=== PATIENT | female | born 1955 | race African-American/Black ===

== ENCOUNTER 2018-07-06 08:36 | Inpatient (IN) ==
[2018-07-06] MEDS ORDERED: hydrALAZINE 20 MG/1 ML VIAL IV STA ×3 (08:56→10:58)
[2018-07-06 09:01] LABS: Basophils % 0.6 % (0.0-0.8); Eosinophils # 0.1 10*3/uL (0.0-0.87); Eosinophils % 2.2 % (0.00-10.9); Hematocrit 43.5 VOL% (35.7-47.0); Hemoglobin 14.6 GM/DL (12.0-16.0); Immature Granulocytes % 0.2 %; Immature Granulocytes Absolute 0.01 #; Lymphocytes # 2.6 10*3/uL (1.4-4.0); Lymphocytes % 40.5 % (21.3-54.2); Mean Corpuscular HGB Conc 33.6 GM/DL (32-36); Mean Corpuscular Hemoglobin 28 PG (27-34); Mean Platelet Volume 10.5 FL (9.6-12.0); Monocytes # 0.7 10*3/uL (0.11-0.8); Monocytes % 10.6 % (1.7-12.7); Neutrophils # 2.9 10*3/uL (1.4-7.4); Neutrophils % 45.9 % (38.7-73.9); Platelet Count 276 T/CUMM (130-400); Red Blood Count 5.24 MC/CUMM (3.8-5.5); White Blood Count 6.4 T/CUMM (4-12)
[2018-07-06 09:30] LABS: Bilirubin,Total 0.6 MG/DL (0.2-1.0); Calcium 9.4 MG/DL (8.5-10.1); Osmolality,Calculated 279.5 MOS/KG (273-304); Potassium 3.8 MMOL/L (3.5-5.1); Total Protein 8.6 G/DL (6.4-8.3)
[2018-07-06 09:38] LABS: Apearance,Urine CLEAR (Clear); Bilirubin,Urine Negative (Negative); Blood, Urine Negative (Negative); Glucose,Urine (UA) Negative (Negative); Ketones,Urine 20 mg/dL (Negative); Mucus,Urine Occasional /LPF (Occasional); Nitrite,Urine Negative (Negative); Protein,Urine 100 MG/DL; RBC,Urine <1 /HPF (0-4); Squamous Epithelial Cell,Urine Occasional /HPF (0-10); Urine Color Yellow (Yellow); Urine Urobilinogen < 2.0 EU/DL (0.2-1.0); WBC,Urine 1 /HPF (0-6)
[2018-07-06 09:59] LABS: Barbiturates Screen,Urine Negative (Negative); Benzodiazepines Screen,Urine Negative (Negative); Cannabinoid Screen,Urine Negative (Negative); Opiate Screen,Urine Negative (Negative); Phencyclidine Screen,Urine Negative (Negative)
[2018-07-06] MEDS ORDERED: ACETAMINOPHEN 325 MG TABLET PO PRN (10:47)
[2018-07-06] MEDS ORDERED: ONDANSETRON 4 MG/2 ML VIAL IV PRN (10:47)
[2018-07-06] MEDS: ASPIRIN EC 325 MG TABLET PO SCH (13:56)
[2018-07-06] MEDS: hydrALAZINE 20 MG/1 ML VIAL IV PRN (21:05)
[2018-07-07 06:36] LABS: Basophils # 0.1 10*3/uL (0.0-0.2); Basophils % 0.7 % (0.0-0.8); Eosinophils # 0.1 10*3/uL (0.0-0.87); Eosinophils % 1.3 % (0.00-10.9); Hematocrit 41.4 VOL% (35.7-47.0); Hemoglobin 13.7 GM/DL (12.0-16.0); Immature Granulocytes % 0.3 %; Immature Granulocytes Absolute 0.02 #; Lymphocytes # 2.5 10*3/uL (1.4-4.0); Lymphocytes % 36.6 % (21.3-54.2); Mean Corpuscular HGB Conc 33.1 GM/DL (32-36); Mean Corpuscular Hemoglobin 28 PG (27-34); Mean Corpuscular Volume 84.1 FL (87-102); Mean Platelet Volume 10.4 FL (9.6-12.0); Monocytes # 0.7 10*3/uL (0.11-0.8); Monocytes % 9.8 % (1.7-12.7); Neutrophils # 3.5 10*3/uL (1.4-7.4); Neutrophils % 51.3 % (38.7-73.9); Platelet Count 258 T/CUMM (130-400); Red Blood Count 4.92 MC/CUMM (3.8-5.5); Red Cell Distribution Width 14.9 % (9.3-17.3); White Blood Count 6.7 T/CUMM (4-12)
[2018-07-07 07:15] LABS: Albumin 3.4 G/DL (3.4-5.0); Bilirubin,Total 0.9 MG/DL (0.2-1.0); Calcium 8.8 MG/DL (8.5-10.1); Osmolality,Calculated 279.5 MOS/KG (273-304); Potassium 3.8 MMOL/L (3.5-5.1); Risk Ratio 4.02; Thyroid Stimulating Hormone 3.67 uIU/ml (0.358-3.74); Total Protein 8.1 G/DL (6.4-8.3); VLDL CHOLESTEROL 10.6 MG/DL
[2018-07-07] MEDS: ASPIRIN EC 325 MG TABLET PO SCH (09:05)
[2018-07-07] MEDS: PANTOPRAZOLE 40 MG TABLET PO SCH (09:05)
[2018-07-08 01:30] LABS: Basophils % 0.7 % (0.0-0.8); Eosinophils # 0.4 10*3/uL (0.0-0.87); Eosinophils % 6.2 % (0.00-10.9); Hematocrit 39.1 VOL% (35.7-47.0); Hemoglobin 12.8 GM/DL (12.0-16.0); Immature Granulocytes % 0.4 %; Immature Granulocytes Absolute 0.02 #; Lymphocytes # 2.7 10*3/uL (1.4-4.0); Lymphocytes % 48.5 % (21.3-54.2); Mean Corpuscular HGB Conc 32.7 GM/DL (32-36); Mean Corpuscular Hemoglobin 27 PG (27-34); Mean Corpuscular Volume 83.7 FL (87-102); Mean Platelet Volume 10.1 FL (9.6-12.0); Monocytes # 0.7 10*3/uL (0.11-0.8); Monocytes % 11.7 % (1.7-12.7); Neutrophils # 1.8 10*3/uL (1.4-7.4); Neutrophils % 32.5 % (38.7-73.9); Platelet Count 240 T/CUMM (130-400); Red Blood Count 4.67 MC/CUMM (3.8-5.5); Red Cell Distribution Width 15.2 % (9.3-17.3); White Blood Count 5.6 T/CUMM (4-12)
[2018-07-08 01:48] LABS: Calcium 8.9 MG/DL (8.5-10.1); Osmolality,Calculated 282.4 MOS/KG (273-304); Potassium 3.8 MMOL/L (3.5-5.1)
[2018-07-08 03:27] LABS: Eosinophils 3 % (0-10); Lymphocytes 58 % (20-55); Platelet Estimate Normal; Segmented Neutrophils 32 % (50-85); Total Cells Counted 100
[2018-07-08] MEDS: hydrALAZINE 20 MG/1 ML VIAL IV PRN (04:40)
[2018-07-08] MEDS: PANTOPRAZOLE 40 MG TABLET PO SCH (09:22)
[2018-07-08] MEDS: ASPIRIN EC 325 MG TABLET PO SCH (09:22)
[2018-07-08] MEDS: amLODIPine 5 MG TABLET PO SCH (11:34)
[2018-07-08] MEDS: ROSUVASTATIN 20 MG TABLET PO SCH (20:09)
[2018-07-09 06:26] LABS: Calcium 8.6 MG/DL (8.5-10.1); Osmolality,Calculated 280.4 MOS/KG (273-304); Potassium 3.7 MMOL/L (3.5-5.1)
[2018-07-09] MEDS ORDERED: amLODIPine 10 MG TABLET PO SCH (09:30)
[2018-07-09] MEDS: amLODIPine 5 MG TABLET PO SCH (09:44)
[2018-07-09] MEDS: PANTOPRAZOLE 40 MG TABLET PO SCH (09:46)
[2018-07-09] MEDS: ASPIRIN EC 325 MG TABLET PO SCH (09:46)
[2018-07-09] MEDS: CLOPIDOGREL 75 MG TABLET PO SCH (14:00)
[2018-07-09] MEDS: ROSUVASTATIN 20 MG TABLET PO SCH (20:34)
[2018-07-10] MEDS ORDERED: LISINOPRIL/HCTZ 10-12.5 MG TABLET PO SCH (09:00)
[2018-07-10] MEDS: ASPIRIN EC 325 MG TABLET PO SCH (09:00)
[2018-07-10] MEDS: PANTOPRAZOLE 40 MG TABLET PO SCH (09:00)
[2018-07-10] MEDS: CLOPIDOGREL 75 MG TABLET PO SCH (09:02)
[2018-07-10 13:27] VITALS: BP 130/78
== END 2018-07-10 15:40 | disposition home health service (06) | DRG 64 ==
LOC: N.ED 08:36 → SUATTDRO 10:45 → N.EDINP 10:45 → N.4E 11:15
PROVIDERS: ADMIT Internal Medicine; ATTEND Internal Medicine

== ENCOUNTER 2018-08-15 07:27 | Inpatient (IN) ==
[2018-08-13 13:48] LABS: Basophils # 0.1 10*3/uL (0.0-0.2); Basophils % 1.1 % (0.0-0.8); Eosinophils # 0.5 10*3/uL (0.0-0.87); Eosinophils % 8.6 % (0.00-10.9); Hematocrit 41.3 VOL% (35.7-47.0); Hemoglobin 13.4 GM/DL (12.0-16.0); Lymphocytes # 2.3 10*3/uL (1.4-4.0); Lymphocytes % 44.2 % (21.3-54.2); Mean Corpuscular HGB Conc 32.4 GM/DL (32-36); Mean Corpuscular Hemoglobin 28 PG (27-34); Mean Corpuscular Volume 85.9 FL (87-102); Mean Platelet Volume 10.2 FL (9.6-12.0); Monocytes # 0.4 10*3/uL (0.11-0.8); Monocytes % 7.6 % (1.7-12.7); Neutrophils % 38.5 % (38.7-73.9); Platelet Count 270 T/CUMM (130-400); Red Blood Count 4.81 MC/CUMM (3.8-5.5); Red Cell Distribution Width 14.7 % (9.3-17.3); White Blood Count 5.3 T/CUMM (4-12)
[2018-08-13 14:06] LABS: Alanine Aminotransferase 23 U/L (13-56); Albumin 3.8 G/DL (3.4-5.0); Alkaline Phosphatase 83 U/L (45-117); Aspartate Amino Transferase 18 U/L (0-37); Bilirubin,Total < 0.39 MG/DL (0.2-1.0); Blood Urea Nitrogen 22 MG/DL (7-18); Calcium 9.3 MG/DL (8.5-10.1); Glucose 218 MG/DL (74-106); Potassium 3.6 MMOL/L (3.5-5.1); Sodium 136 MMOL/L (136-145); Total Protein 8.9 G/DL (6.4-8.3)
[2018-08-13 14:29] LABS: Eosinophils 12 % (0-10); Lymphocytes 46 % (20-55); Platelet Estimate Normal; Segmented Neutrophils 34 % (50-85); Total Cells Counted 100
[2018-08-15] MEDS: LACTATED RINGERS 1,000 ML IV SCH ×3 (01:00→15:09)
[~2018-08-15 07:27] MED LIST: ceFAZolin 1,000 MG in SYRINGE 1 EACH IV ONE
[2018-08-15] MEDS ORDERED: ceFAZolin 1,000 MG VIAL ONE (09:03)
[2018-08-15] MEDS ORDERED: LIDOCAINE 1% 20 ML VIAL ONE (10:52)
[2018-08-15] MEDS ORDERED: HEPARIN 5,000 UNIT/1 ML VIAL ONE (10:52)
[2018-08-15] MEDS ORDERED: NITROGLYCERIN DRIP 0 MG/0 ML BOTTLE IV ONE (11:40)
[2018-08-15] MEDS ORDERED: DEXTROSE 50% 25 GM/50 ML VIAL IV PRN (12:41)
[2018-08-15] MEDS ORDERED: PROMETHAZINE 25 MG/1 ML VIAL IM PRN (12:41)
[2018-08-15] MEDS ORDERED: oxyCODONE/ACETAMINOPHEN 5-325 MG TABLET PO PRN ×2 (12:41)
[2018-08-15] MEDS ORDERED: NALOXONE 0.4 MG/ML VIAL IV PRN (12:41)
[2018-08-15] MEDS ORDERED: ONDANSETRON 4 MG/2 ML VIAL IV PRN (12:41)
[2018-08-15] MEDS ORDERED: HYDROmorphone 2 MG/1 ML VIAL IV PRN ×2 (12:41)
[2018-08-15] MEDS ORDERED: GLUCAGON 1 MG VIAL IM PRN (12:41)
[2018-08-15] MEDS ORDERED: NITROPRUSSIDE 100 MG in DEXTROSE 5% 250 ML IV SCH ×2 (13:00→14:39)
[2018-08-15] MEDS ORDERED: PHENYLEPHRINE DRIP 40 MG/250 ML PREMIX IV SCH ×2 (13:00→14:38)
[2018-08-15] MEDS ORDERED: PROPOFOL 200 MG/20 ML VIAL IV ONE (13:03)
[2018-08-15] MEDS ORDERED: HEPARIN 10,000 UNIT/10 ML VIAL ONE (13:03)
[2018-08-15] MEDS ORDERED: SEVOFLURANE 1 UNIT/15 MINUTE INH ONE (13:04)
[2018-08-15] MEDS ORDERED: ONDANSETRON 4 MG/2 ML VIAL ONE (13:04)
[2018-08-15] MEDS ORDERED: fentaNYL 100 MCG/2 ML VIAL ONE (13:04)
[2018-08-15] MEDS ORDERED: GLYCOPYRROLATE 0.4 MG/2 ML VIAL ONE (13:04)
[2018-08-15] MEDS ORDERED: SUCCINYLCHOLINE 200 MG/10 ML VIAL ONE (13:04)
[2018-08-15] MEDS ORDERED: MIDAZOLAM 2 MG/2 ML VIAL ONE (13:04)
[2018-08-15] MEDS ORDERED: NEOSTIGMINE 10 MG/10 ML VIAL ONE (13:05)
[2018-08-15] MEDS ORDERED: ROCURONIUM 100 MG/10 ML VIAL IV ONE (13:05)
[2018-08-15] MEDS ORDERED: ROSUVASTATIN 20 MG TABLET PO SCH (21:00)
[2018-08-16] MEDS: LACTATED RINGERS 1,000 ML IV SCH ×3 (01:00→08:50)
[2018-08-16] MEDS ORDERED: LISINOPRIL/HCTZ 10-12.5 MG TABLET PO SCH (09:00)
[2018-08-16] MEDS ORDERED: PANTOPRAZOLE 40 MG TABLET PO SCH (09:00)
[2018-08-16] MEDS ORDERED: amLODIPine 10 MG TABLET PO SCH (09:00)
[2018-08-16] MEDS ORDERED: ASPIRIN EC 81 MG TABLET PO SCH (09:00)
[2018-08-16] MEDS ORDERED: CLOPIDOGREL 75 MG TABLET PO SCH (09:00)
[2018-08-16 12:57] VITALS: BP 120/74
== END 2018-08-16 15:35 | disposition home or self-care (01) | DRG 39 ==
LOC: N.SDSINP 07:27 → N.ICU 12:51 → N.3E 08-16 12:53
PROVIDERS: ADMIT Surgery; ATTEND Surgery